=== PATIENT | male | born 1980 | race Caucasian/White ===

== ENCOUNTER 2022-07-19 17:21 | Emergency (ER) | payer OTHER, SELFPAY ==
--- NOTE | ~2022-07-19 | XR_ITS ---
EXAMINATION: XR foot LT min 3V DATE: 07/19/2022 17:46 INDICATION: Left foot pain TECHNIQUE: Dorsoplantar, lateral, and 2 oblique views of the left foot were obtained. COMPARISON: None. FINDINGS: No fracture, dislocation, or subluxation. The bones and joint spaces are normal. There is m ild dorsal soft tissue swelling overlying the metatarsals. IMPRESSION: 1. No acute osseous abnormality. Reviewed, dictated and finalized at location F.
--- NOTE | 2022-07-19 17:23 | ED.LOWEXIN ---
HPI - Extremity Injury (Lower) General Chief Complaint: Extremity Injury, Lower Stated Complaint: lt foot injury Time Seen by Provider: 07/19/22 17:23 Source: patient Mode of arrival: ambulatory Limitations: no limitations History of Present Illness HPI Narrative: Mr. Mcintyre is a 41-year-old male patient presenting to the clinic today with complaints of left foot pain/injury occurred approximately 3 hours ago. He reports he dropped a 5 gal bucket full of rocks on to the top of his left foot. Has pain to the proximal dorsal foot with bruising and mild swelling noted Related Data Home Medications Medication Instructions Recorded Confirmed No Home Medications 07/19/22 07/19/22 Allergies Allergy/AdvReac Type Severity Reaction Status Date / Time No Known Allergies Allergy Verified 07/19/22 17:38 Review of Systems Review of Systems: Pertinent positives per HPI. Patient denies any fever, chills, rash, headache, visual changes, dizziness, cough, runny nose, sore throat, shortness of breath, chest pain, palpitations, nausea, vomiting, diarrhea, constipation, abdominal pain, or any urinary issues. PMFSH Comments At the time of my signature, I reviewed and agree with the nursing past medical, surgical, social, and family history. There is no relevant family history pertinent to the patient complaint. Exam Narrative: General: Well-developed, well nourished, in no apparent distress Head: Normocephalic, atraumatic. Cardio: Regular rate and rhythm, s1 and s2 normal, no murmur appreciated. Resp: Clear to auscultation bilaterally, no rhonchi, rales, wheezing or rubs. Musculoskeletal: No deformity, bruising and mild swelling noted over the left proximal 5 foot, tender to palpation over the proximal dorsal left foot, grossly normal range of motion, muscle strength strong and equal, peripheral pulse strong, no edema, no cyanosis, normal gait and station Course Course Emergency Course: Portions of this record may have been created with voice recognition software. Level of Care: Express Care Visit Vital Signs Vital signs: Vital signs reviewed MDM - Extremity Injury (Lower) MDM Narrative Medical decision making narrative: At the time of visit patient is resting comfortably on the exam table. X-ray of the left foot was performed and was negative for any fracture or malalignment in the clinic today. I suspect patient has a foot contusion. Supportive measures were discussed with the patient he voiced understanding discharge instructions agrees to treatment plan. Differential Diagnosis Differential diagnosis: Likely other (Foot fracture, soft tissue injury, foot contusion) Imaging Data Radiologist's impression: [facility] [address] [place] [id number] XRay Report Signed Patient: Olman Mcintyre : 1980 MR#: [id number] Age/Sex: 41 / M Acct:[id number] Loc: [facility]? ? ADM Date: 07/19/22Attending Dr: Ordering Physician: Khoa Arroyo APRN Date of Service: 07/19/22 Procedure(s): XR foot LT min 3V Accession Number(s): [id number] cc: Khoa Arroyo APRN; CHIEF MECH[employer]ICAL ENGINEER PHYSICIAN~ EXAMINATION: XR foot LT min 3V DATE: 07/19/2022 17:46 INDICATION: Left foot pain TECHNIQUE: Dorsoplantar, lateral, and 2 oblique views of the left foot were obtained. COMPARISON: None. FINDINGS: No fracture, dislocation, or subluxation. The bones and joint spaces are normal. There is mild dorsal soft tissue swelling overlying the metatarsals. IMPRESSION: 1. No acute osseous abnormality. Reviewed, dictated and finalized at location F. Dictated By:? Juan Carlson MD? 07/19/221753 Signed By:? ? <Electronically signed by? Juan Carlson MD in [place]> 07/19/221755 Discharge Plan Discharge Clinical Impression: Contusion o
[2022-07-19 17:36] VITALS: BP 132/71; PULSE 67; RESP 18; TEMP 36.6; O2SAT 99
== END 2022-07-19 18:02 | disposition home or self-care (01) ==
PROVIDERS: Emergency Provider Nurse Practitioner Family
DX: S90.32XA Contusion of left foot, initial encounter (principal); W20.8XXA Other cause of strike by thrown, projected or falling object, initial encounter
CPT/HCPCS: 73630; 99213; G0463